=== PATIENT | male | born 1970 | race Caucasian/White ===

== ENCOUNTER 2022-08-08 09:24 | Day surgery (SDC) | payer BC ==
--- NOTE | 2022-08-08 08:25 | HP ---
DATE OF SURGERY: 08/08/2022 HISTORY OF PRESENT ILLNESS: A 52-year-old last colonoscopy years ago and had some polyps. He is in need of follow up screening colonoscopy. No change in bowel movements. No new pain. PAST MEDICAL HISTORY: He had migraines in the past. Kidney stones in the past. PAST SURGICAL HISTORY: Cardiac cath. Cardiac ablation. Colonoscopy. Left ankle. MEDICATIONS: Multivitamin, fish oil, garlic, Turmeric, milk thistle. ALLERGIES: DEMEROL. FAMILY HISTORY: No colon cancer. SOCIAL HISTORY: Former smoker, occasional alcohol use denies abuse. REVIEW OF SYSTEMS: Fourteen systems reviewed. No chest pain or palpitations. Other systems negative or noncontributory as above and per preadmission questionnaire. PHYSICAL EXAMINATION: Height 6' 3". BMI 27.5. GENERAL: No acute distress. HEENT: Sclerae nonicteric. NECK: No JVD. CHEST: Equal excursion, nonlabored breathing. CVS: Regular rate and rhythm. ABDOMEN: Soft. No peritoneal signs. EXTREMITIES: No significant edema. NEURO: Alert, oriented, moving extremities symmetrically. RECTAL: Deferred timed to endoscopy exam. PSYCH: Appropriate mood and affect. SKIN: Dry. IMPRESSION: History of polyps, needs follow up screening colonoscopy. I feel he is a candidate. Shown the risk sheet explained the procedure in detail including but not limited to bleeding or infection, risk of bowel injury or perforation, risk of missed or nondiagnosis or incomplete exam possibly requiring barium enema, other studies or procedures, general risk of anesthesia or sedation, risk of bowel prep but not limited to, consent obtained. Will proceed with outpatient screening colonoscopy under MAC anesthesia.
[2022-08-08] MEDS ORDERED: Lactated Ringers 1,000 ML IV SCH (10:00)
[2022-08-08] MEDS ORDERED: Xylocaine-Mpf 2% 5 Ml Vial ONE (11:50)
[2022-08-08] MEDS ORDERED: DIPRIVAN 200 MG/20 ML IV ONE ×2 (11:50→12:23)
[2022-08-08 13:11] VITALS: O2SAT 98
[2022-08-08 13:17] VITALS: BP 118/86; PULSE 72
--- NOTE | 2022-08-08 14:55 | OP ---
SURGERY DATE/TIME: 08/08/2022 1210 PREOPERATIVE DIAGNOSIS: History of polyps in the past need for follow up screening colonoscopy. POSTOPERATIVE DIAGNOSES: 1) ASA Class II. 2) Fair but slightly limited bowel prep. 3) Vague roughened area in rectum versus normal variation of mucosa, hyperplasia of mucosa. 4) Withdrawal time approximately nine minutes. PROCEDURES: 1) Colonoscopy to cecum. 2) Cold biopsy of rectal raised roughened area. SURGEON: Dr. Jonah Dudley. INTERNET PROJECT MANAGER: Devante Black, Medical Student 3. ANESTHESIA: MAC. ESTIMATED BLOOD LOSS: Minimal. INDICATIONS: As noted above. Risks and benefits explained in detail but not limited to and consent obtained. DESCRIPTION OF PROCEDURE AND FINDINGS: The patient is taken to the endoscopy room. MAC anesthesia induced. After official time out and no disagreement with planned procedure, digital rectal exam did not reveal any rectal masses. Video colonoscope inserted and passed up through the tortuous sigmoid, descending, transverse and ascending colon around to the cecum. Appendiceal orifice and ileocecal valve well visualized and photo documented. Prep overall was only fair with gross liquidy stool throughout the colon this was suctioned clear as possible but limited the exam for very small lesions. The scope is slowly and carefully withdrawn over the next nine minutes. There were no signs of any large polyps, masses or obstructing lesions. He had a little bit of roughened area in the rectum that was cold biopsied. Whether this is some hyperplasia, normal variation it was felt for completeness it should be cold biopsied. Good hemostasis was noted. No signs of any large polyps, masses or obstructing lesions. It the path is benign likely given the prep quality would recommend checking the colon again in five years.
== END 2022-08-08 13:25 | disposition home or self-care (01) ==
LOC: SDC 09:24
PROVIDERS: ATTEND Surgery
DX: Z09 Encounter for follow-up examination after completed treatment for conditions other than malignant neoplasm (principal); Z86.010 Personal history of colon polyps; R93.3 Abnormal findings on diagnostic imaging of other parts of digestive tract
CPT/HCPCS: J2704